=== PATIENT | male | born 1985 | race African-American/Black ===

== ENCOUNTER 2016-10-13 19:31 | Emergency (ER) | payer OTHER ==
--- NOTE | 2016-10-13 19:50 | PDOC ---
Rapid Medical Evaluation Chief Complaint: Chest Pain Medical Evaluation: Allergies Allergy/AdvReac Type Severity Reaction Status Date / Time No Known Allergies Allergy Verified 09/06/11 06:02 10/13/16 19:47 Brief evaluation in E Pt cc: upper back pain and chest pain started at 9am. Pt states "I have muscle spasms in my back" and chest pressure. PE: vitals stable took advil this am will order EKG ekg done in [facility] by Irina DALE on arrival. 10/13/16 20:48
[2016-10-13 19:51] VITALS: TEMP 98.1; BMI 26.8
[2016-10-13 20:17] LABS: BASOPHIL 0.6 % (0-2.0); EOSINOPHIL 1.7 % (0-4.5); MCH 27.8 pg (25.7-33.7); MEAN CELL VOLUME 86.8 fl (80-96); MEAN PLT VOLUME 9.3 fl (7.5-11.1); NEUTROPHILS 43.7 % (42.8-82.8); PLATELET COUNT 187 K/MM3 (134-434); RDW 13.6 % (11.9-15.9); WHITE BLOOD COUNT 5.9 K/mm3 (4.0-10.0)
[2016-10-13 20:41] LABS: ALBUMIN 4.1 g/dl (3.4-5.0); ANION GAP 7 (8-16); CO2 30 mmol/L (21-32); CREATININE 1.2 mg/dL (0.7-1.3); GLUCOSE,RANDOM 91 mg/dL (74-106); MAGNESIUM 2.3 mg/dL (1.8-2.4); SGOT/AST 19 U/L (15-37); SGPT/ALT 31 U/L (12-78)
[2016-10-13 20:45] LABS: ALK PHOS 58 U/L (45-117); BILIRUBIN,TOTAL 0.4 mg/dL (0.2-1.0); TOT PROT 7.3 g/dl (6.4-8.2); TROPONIN I < 0.02 ng/ml (0.00-0.05)
[2016-10-13] MEDS ORDERED: ONDANSETRON 4 MG/2 ML VIAL IVPUSH ONE (21:24)
[2016-10-13] MEDS ORDERED: morphine CARPU-JECT 2 MG/1 ML DISP.SYRIN IVPUSH ONE (21:24)
[2016-10-13] MEDS ORDERED: SODIUM CHLORIDE 1,000 ML IV STA (21:24)
[2016-10-13] MEDS ORDERED: ONDANSETRON 4 MG/2 ML VIAL ONE (21:31)
[2016-10-13] MEDS ORDERED: morphine CARPU-JECT 2 MG/1 ML DISP.SYRIN ONE (21:31)
[2016-10-13 21:50] LABS: URINE APPEARANCE CLEAR; URINE BILIRUBIN NEGATIVE (NEGATIVE); URINE BLOOD NEGATIVE (NEGATIVE); URINE COLOR LTYELLOW; URINE GLUCOSE (UA) NEGATIVE (NEGATIVE); URINE KETONE NEGATIVE (NEGATIVE); URINE LEUK ESTERASE NEGATIVE (NEGATIVE); URINE NITRITE NEGATIVE (NEGATIVE); URINE PROTEIN NEGATIVE (NEGATIVE); URINE UROBILINOGEN NEGATIVE E.U./dl (0.2-1.0)
--- NOTE | 2016-10-13 21:52 | PDOC ---
History of Present Illness - General Chief Complaint: Chest Pain Stated Complaint: CHEST PAIN Time Seen by Provider: 10/13/16 21:15 History Source: Patient Exam Limitations: No Limitations - History of Present Illness Travel History: No Initial Comments: 10/13/16 21:43 31yo Male patient w/ no significant past medical history presents to ED c/o chest pain this morning starting at 9am. Patient state he was working when symptoms presented. He denies n/v/d, fever, sweating, drug use, smoking, diff breathing, back pain, abd pain, rash, or any other complaints at this time. Patient reports father from [place] and Brother had CVA. Timing/Duration: reports: constant Quality: reports: moderate, other (Pressure) Abdominal Pain Onset Location: reports: epigastric Pain Radiation: reports: no radiation Activities at Onset: reports: none Treatment Prior to Arrive: worse with: analgesics, antacids, cold pack, heat, laxative, enema, other Aggravating Factors: worse with: None, Defecation, Eating, Emotional upset, Exertion, [place], Movement, Voiding, Change in position Alleviating Factors: worse with: None, Belching, Shallow Breathing, Defecation, Eating, Holding Breath, Passing Gas, Change in Position, Rest, Voiding, Vomiting Past History - Travel Traveled outside of the country in the last 30 days: No Close contact w/someone who was outside of country & ill: No - Past Medical History Allergies/Adverse Reactions: Allergies Allergy/AdvReac Type Severity Reaction Status Date / Time No Known Allergies Allergy Verified 10/13/16 19:47 Home Medications: Ambulatory Orders Famotidine [Pepcid -] 40 mg PO BID #14 tablet 10/14/16 Pantoprazole Sodium [Protonix -] 40 mg PO DAILY #30 tablet.ec 10/14/16 Tramadol HCl [Ultram] 50 mg PO Q8H PRN #12 tablet MDD 3 TABS 10/14/16 - Immunization History Td Vaccination: No - Psycho/Social/Smoking Cessation Hx Suicidal Ideation: No Smoking Status: No Smoking History: Never smoked Number of Cigarettes Smoked Daily: 0 Review of Systems - Review of Systems Able to Perform ROS?: Yes Is the patient limited [place] proficient: No Constitutional: No: Chills, Fever, Malaise, Night Sweats Respiratory: No: Cough, Shortness of Breath, Stridor, Wheezing Cardiac (ROS): Yes: Chest Pain, Other (Chest Pressure). No: Lightheadedness, Palpitations, Syncope, Chest Tightness ABD/GI: No: Constipated, Diarrhea, Nausea, Poor Appetite, Poor Fluid Intake, Rectal Bleeding, Vomiting, Abdominal cramping : No: Burning, Dysuria, Flank Pain Musculoskeletal: No: Back Pain Integumentary: No: Bruising, Erythema, Rash Neurological: No: Headache, Seizure, Ataxia, Dizziness Psychiatric: No: Anxiety, Depression All Other Systems: Reviewed and Negative *Physical Exam - Vital Signs Last Vital Signs Temp Pulse Resp BP Pulse Ox 98.1 F 58 L 18 138/92 99 10/13/16 19:48 10/13/16 19:48 10/13/16 19:48 10/13/16 19:48 10/13/16 19:48 - Physical Exam General Appearance: Yes: Nourished, Appropriately Dressed. No: Apparent Distress, Mild Distress, Moderate Distress, Severe Distress Neck: positive: Trachea midline, Normal Thyroid, Supple. negative: Decreased range of motion, Stridor, Lymphadenopathy (R), Lymphadenopathy (L) Respiratory/Chest: positive: Lungs Clear, Normal Breath Sounds. negative: Chest Tender, Respiratory Distress, Accessory Muscle Use, Labored Respiration, Rapid RR, Stridor, Wheezing Cardiovascular: positive: Regular Rhythm, Regular Rate. negative: Edema, JVD, Murmur Gastrointestinal/Abdominal: positive: Normal Bowel Sounds, Soft. negative: Tender, Distended, Guarding, Rebound, Tenderness Musculoskeletal: positive: Normal Inspection. negative: CVA Tenderness Extremity: positive: Normal Capillary Refill, Normal Inspection, Normal Range of Motion. negative: Swelling, Calf Tenderness, Erythema, Inflammation Integumentary: positive: Normal Color, Dry, Warm. negative: Rash, Swelling, Bruising Neurologic: positive: research intern II-XII NML intact, Fully Oriented, Alert, Normal Mood/ Affect, Normal Response, Motor Strength / ED Treatment Course - LABORATORY CBC & Chemistry Diagram: 10/13/16 20:00 10/13/16 20:00 - ADDITIONAL ORDERS Additional order review: Laboratory Results 10/13/16 20:00 Sodium 139 Potassium 4.3 Chloride 102 Carbon Dioxide 30 Anion Gap 7 L BUN 16 Creatinine 1.2 Creat Clearance w eGFR > 60 Random Glucose 91 Calcium 9.0 Magnesium 2.3 Total Bilirubin 0.4 AST 19 ALT 31 Alkaline Phosphatase 58 Creatine Kinase 293 Troponin I < 0.02 Total Protein 7.3 Albumin 4.1 10/13/16 20:00 RBC 5.03 MCV 86.8 MCHC 32.0 RDW 13.6 MPV 9.3 Neutrophils % 43.7 Lymphocytes % 45.1 H Monocytes % 8.9 Eosinophils % 1.7 Basophils % 0.6 - RADIOLOGY Radiology Studies Ordered: Category Date Time Status GALLBLADDER US [US] Stat Ultrasound 10/13/16 21:23 Ordered *DC/Admit/Observation/Transfer Diagnosis at time of Disposition: Chest pain Qualifiers: Chest pain type: unspecified Qualified Code(s): R07.9 - Chest pain, unspecified Gastroesophageal reflux disease Qualifiers: Esophagitis presence: without esophagitis Qualified Code(s): K21.9 - Gastro- esophageal reflux disease without esophagitis - Discharge Dispostion Disposition: HOME Condition at time of disposition: Improved Admit: No - Prescriptions Prescriptions: Famotidine [Pepcid -] 40 mg PO BID #14 tablet Pantoprazole Sodium [Protonix -] 40 mg PO DAILY #30 tablet.ec Tramadol HCl [Ultram] 50 mg PO Q8H PRN #12 tablet MDD 3 TABS PRN Reason: Severe Pain - Referrals Referrals: Dread Khan MD [Staff Physician] - - Patient Instructions Printed Discharge Instructions: DI for Chest Pain Additional Instructions: FOLLOW UP WITH DR. KHAN (CARDIOLOGY). CALL TO SCHEDULE APPOINTMENT. TAKE MEDICATIONS PRESCRIBED. RETURN IF SYMPTOMS WORSEN OR ANY CONCERNS FOR FURTHER EVALUATION. AVOID SPICY FOODS, ALCOHOL, AND IBUPROFEN UNTIL SEEN BY SPECIALIST. Print Language: BOLIVIAN - Post Discharge Activity Work/School Note: Back to Work
--- NOTE | 2016-10-13 22:27 | PDOC ---
*Physical Exam - Vital Signs Last Vital Signs Temp Pulse Resp BP Pulse Ox 98.1 F 58 L 18 138/92 99 10/13/16 19:48 10/13/16 19:48 10/13/16 19:48 10/13/16 19:48 10/13/16 19:48 ED Treatment Course - LABORATORY CBC & Chemistry Diagram: 10/13/16 20:00 10/13/16 20:00 - ADDITIONAL ORDERS Additional order review: Laboratory Results 10/13/16 10/13/16 10/13/16 21:35 20:00 20:00 Sodium 139 Potassium 4.3 Chloride 102 Carbon Dioxide 30 Anion Gap 7 L BUN 16 Creatinine 1.2 Creat Clearance w eGFR > 60 Random Glucose 91 Calcium 9.0 Magnesium 2.3 Total Bilirubin 0.4 AST 19 ALT 31 Alkaline Phosphatase 58 Creatine Kinase 293 Creatine Kinase Index CK-MB (CK-2) < 1.000 CK-MB (CK-2) Rel Index Cancelled Troponin I < 0.02 Total Protein 7.3 Albumin 4.1 Urine Color Ltyellow Urine Appearance Clear Urine pH 7.0 Urine Protein Negative Urine Glucose (UA) Negative Urine Ketones Negative Urine Blood Negative Urine Nitrite Negative Urine Bilirubin Negative Urine Urobilinogen Negative Ur Leukocyte Esterase Negative 10/13/16 20:00 RBC 5.03 MCV 86.8 MCHC 32.0 RDW 13.6 MPV 9.3 Neutrophils % 43.7 Lymphocytes % 45.1 H Monocytes % 8.9 Eosinophils % 1.7 Basophils % 0.6 - Medications Given in the ED: ED Medications Discontinued Medications Generic Name Dose Route Start Last Admin Trade Name Freq PRN Reason Stop Dose Admin Sodium Chloride 1,000 mls @ 1,000 mls/hr 10/13/16 21:24 10/13/16 21:45 Normal Saline - IV 10/13/16 22:23 1,000 mls/hr ASDIR STA Administration Morphine Sulfate 2 mg 10/13/16 21:24 10/13/16 21:45 Morphine Injection - IVPUSH 10/13/16 21:25 2 mg ONCE ONE Administration Ondansetron HCl 4 mg 10/13/16 21:24 10/13/16 21:45 Zofran Injection IVPUSH 10/13/16 21:25 4 mg ONCE ONE Administration Medical Decision Making - Medical Decision Making 10/13/16 22:26 Pt seen by the Advanced Practice Provider under my direct supervision Ancillary studies reviewed I agree with plan as outlined by the Advanced Practice Provider COMPA Rikc
[2016-10-13] MEDS ORDERED: morphine CARPU-JECT 4 MG/1 ML DISP.SYRIN IVPUSH ONE (23:35)
[2016-10-13] MEDS ORDERED: morphine CARPU-JECT 4 MG/1 ML DISP.SYRIN ONE (23:38)
[2016-10-14 01:26] VITALS: BP 135/86; PULSE 71
[2016-10-14 01:55] LABS: TROPONIN I < 0.02 ng/ml (0.00-0.05)
--- NOTE | 2016-10-14 11:42 | EKG ---
Test Reason : Blood Pressure : / mmHG Vent. Rate : 058 BPM Atrial Rate : 058 BPM P-R Int : 146 ms QRS Dur : 092 ms QT Int : 416 ms P-R-T Axes : 046 046 025 degrees QTc Int : 408 ms SINUS BRADYCARDIA WITH SINUS ARRHYTHMIA EARLY REPOLARIZATION OTHERWISE NORMAL ECG WHEN COMPARED WITH ECG OF 11-JUL-2006 01:08, NO SIGNIFICANT CHANGE WAS FOUND Confirmed by WILL SCHULZ, HANNAH ([id number]) on 10/14/2016 11:41:39 AM Referred By: BRIGITTE Confirmed By:HANNAH SOLIS MD
== END 2016-10-14 02:13 | disposition home or self-care (01) ==
LOC: JER 19:31
PROC: 3E033NZ Introduction of Analgesics, Hypnotics, Sedatives into Peripheral Vein, Percutaneous Approach (ICD-10-PCS; principal; 2016-10-13)
PROC: 3E033GC Introduction of Other Therapeutic Substance into Peripheral Vein, Percutaneous Approach (ICD-10-PCS; 2016-10-13)
DX: K21.9 Gastro-esophageal reflux disease without esophagitis (principal)
CPT/HCPCS: 36415; 71020-TC; 76705-TC; 80053; 81003; 82550; 82553; 83735; 84484; 85025; 93005; 93010; 99282-25